=== PATIENT | female | born 1995 | race Caucasian/White ===

== ENCOUNTER 2018-10-18 12:15 | Emergency (ER) | payer OTHER, BC ==
--- NOTE | 2018-10-18 12:26 | ER Report ---
History and Physical Time Seen By MD: 12:23 HPI/ROS CHIEF COMPLAINT: Abdominal pain HISTORY OF PRESENT ILLNESS: This is a 23-year-old female who presents to the emergency department for abdominal pain. Patient was seen earlier this week by her primary care provider for abdominal pain, concern about a urinary tract infection, as well as BV, according to the patient the urine was negative however with her symptoms of frequency, urgency and dysuria they put her on a three-day course of Bactrim, they sent the urine out for culture, the called her back with negative culture results, she did finish antibiotics. She also had a pelvic exam which was unremarkable. Patient states that the lower abdomen is still painful. Patient also states that she can't remember the last time she had a bowel movement she been so focused on her urinary symptoms. She denies fevers or chills. Mild bilateral flank pain, left greater than right. Severe nausea w ith one episode of vomiting this morning. No chest pain or shortness of breath. No rashes. No headaches. No other complaints. REVIEW OF SYSTEMS: Constitutional: No fever, no chills. Eyes: No discharge. ENT: No sore throat. Cardiovascular: No chest pain, no palpitations. Respiratory: No cough, no shortness of breath. Gastrointestinal: As above. Genitourinary: As above. Musculoskeletal: As above. Skin: No rashes. Neurological: No headache. Allergies: Coded Allergies: No Known Drug Allergies (Unverified , 10/18/18) Home Meds Active Scripts Cephalexin Monohydrate (CEPHALEXIN) 500 Mg Cap, 500 MG PO BID for 7 Days, #14 CAP 0 Refills Prov:JI EDGAR PURIFICATION DIRECTOR- 10/18/18 Reported Medications Ibuprofen (IBUPROFEN) 400 Mg Tablet, 2 TAB PO Q6H, TAB 10/18/18 Phenazopyridine HCl (Azo Urinary Pain Relief) 97.5 Mg Tablet 10/18/18 Past Medical/Surgical History The patient has a past medical and surgical history of anemia, urinary tract infections, depression. Reviewed Nurses Notes: Yes Constitutional Vital Sign - Last 24 Hours 10/18/18 10/18/18 10/18/18 10/18/18 12:15 12:26 12:28 12:29 Temp 98.2 Pulse ??? 119 Resp 16 B/P (MAP) 144/104 (117) 127/98 130/111 (117) Pulse Ox 95 O2 Delivery Room Air 10/18/18 10/18/18 10/18/18 12:30 12:45 13:00 Pulse 112 100 78 B/P (MAP) 127/98 (108) 109/79 (89) Pulse Ox 96 95 94 Physical Exam General Appearance: The patient is alert, has no immediate need for airway protection and no signs of toxicity. Eyes: Pupils equal and round no pallor or injection. ENT, Mouth: Mucous membranes are moist. Respiratory: There are no retractions, lungs are clear to auscultation. Cardiovascular: Regular rate and rhythm. No murmurs, clicks or rubs. Gastrointestinal: Abdomen is soft, increased firmness with palpation to the left lower quadrant. Tenderness bilateral lower quadrants extending into the bilateral upper quadrants with palpation. No rebound tenderness. No masses, no abdominal bruits. Hypoactive bowel sounds in all quadrants. Neurological: Alert and oriented 4. Moving all extremities. Following all commands. No focal neuro deficits. Skin: Warm and dry, no rashes. Musculoskeletal: Neck is supple non tender. Bilateral CVA tenderness, left greater than right. Extremities are nontender, nonswollen and have full range of motion. DIFFERENTIAL DIAGNOSIS: After history and physical exam differential diagnosis was considered for abdominal pain in a female including but not limited to ovarian cyst, pelvic inflammatory disease, ovarian torsion, urinary tract infection, and appendicitis. Medical Decision Making Data Points Result Diagram: 10/18/18 1257 10/18/18 1257 Laboratory Hematology Test 10/18/18 12:22 10/18/18 12:57 Urine Color Alva Urine Clarity Clear Urine pH 5.0 pH (4.8-9.5) Urine Specific [place] 1.023 Urine Protein Negative mg/dL (NEGATIVE) Urine Glucose (UA) Negative mg/dL (NEGATIVE) Urine Ketones Negative mg/dL (NEGATIVE) Urine Blood Negative (NEGATIVE) Urine Nitrite Positive (NEGATIVE) Urine Bilirubin Negative (NEGATIVE) Urine Urobilinogen 4.0 mg/dL (0.2-1.9) Urine Leukocyte Esterase Negative (NEGATIVE) Urine RBC <1 /HPF (0-2/HPF) Urine WBC <1 /HPF (0-5/HPF) Urine Squamous Epithelial Cells Many /LPF (</=FEW) Urine Bacteria Few /HPF (NONE-FEW) Urine Mucus Few /HPF (NONE-FEW) Red Blood Count 5.82 M/uL (4.17-5.56) Mean Corpuscular Volume 82.8 fL (80.0-96.0) Mean Corpuscular Hemoglobin 28.0 pg (26.0-33.0) Mean Corpuscular Hemoglobin Concent 33.8 g/dL (32.0-36.0) Red Cell Distribution Width 13.5 % (11.5-14.5) Mean Platelet Volume 8.3 fL (7.2-11.1) Neutrophils (%) (Auto) 75.0 % (39.4-72.5) Lymphocytes (%) (Auto) 16.6 % (17.6-49.6) Monocytes (%) (Auto) 6.5 % (4.1-12.4) Eosinophils (%) (Auto) 1.3 % (0.4-6.7) Basophils (%) (Auto) 0.6 % (0.3-1.4) Nucleated RBC Relative Count (auto) 0.0 /100WBC Neutrophils # (Auto) 4.7 K/uL (2.0-7.4) Lymphocytes # (Auto) 1.1 K/uL (1.3-3.6) Monocytes # (Auto) 0.4 K/uL (0.3-1.0) Eosinophils # (Auto) 0.1 K/uL (0.0-0.5) Basophils # (Auto) 0.0 K/uL (0.0-0.1) Nucleated RBC Absolute Count (auto) 0.00 K/uL Sodium Level 139 mmol/L (137-145) Potassium Level 4.4 mmol/L (3.5-5.0) Chloride Level 104 mmol/L (98-107) Carbon Dioxide Level 24 mmol/L (22-31) Blood Urea Nitrogen 17 mg/dl (7-18) Creatinine 0.90 mg/dl (0.52-1.04) Glomerular Filtration Rate Calc > 60.0 Random Glucose 103 mg/dl (75-110) Calcium Level 10.2 mg/dl (8.4-10.2) Total Bilirubin 1.0 mg/dl (0.2-1.3) Aspartate Amino Transf (AST/SGOT) 24 U/L (0-35) Alanine Aminotransferase (ALT/SGPT) 19 U/L (0-56) Alkaline Phosphatase 97 U/L (0-126) Total Protein 8.8 g/dl (6.3-8.2) Albumin 5.0 g/dl (3.5-5.0) Human Chorionic Gonadotropin, Qual Negative (NEGATIVE) Chemistry Test 10/18/18 12:22 10/18/18 12:57 Urine Color Alva Urine Clarity Clear Urine pH 5.0 pH (4.8-9.5) Urine Specific [place] 1.023 Urine Protein Negative mg/dL (NEGATIVE) Urine Glucose (UA) Negative mg/dL (NEGATIVE) Urine Ketones Negative mg/dL (NEGATIVE) Urine Blood Negative (NEGATIVE) Urine Nitrite Positive (NEGATIVE) Urine Bilirubin Negative (NEGATIVE) Urine Urobilinogen 4.0 mg/dL (0.2-1.9) Urine Leukocyte Esterase Negative (NEGATIVE) Urine RBC <1 /HPF (0-2/HPF) Urine WBC <1 /HPF (0-5/HPF) Urine Squamous Epithelial Cells Many /LPF (</=FEW) Urine Bacteria Few /HPF (NONE-FEW) Urine Mucus Few /HPF (NONE-FEW) White Blood Count 6.3 k/uL (4.5-11.0) Red Blood Count 5.82 M/uL (4.17-5.56) Hemoglobin 16.3 g/dL (12.0-16.0) Hematocrit 48.2 % (34.0-47.0) Mean Corpuscular Volume 82.8 fL (80.0-96.0) Mean Corpuscular Hemoglobin 28.0 pg (26.0-33.0) Mean Corpuscular Hemoglobin Concent 33.8 g/dL (32.0-36.0) Red Cell Distribution Width 13.5 % (11.5-14.5) Platelet Count 267 K/uL (150-450) Mean Platelet Volume 8.3 fL (7.2-11.1) Neutrophils (%) (Auto) 75.0 % (39.4-72.5) Lymphocytes (%) (Auto) 16.6 % (17.6-49.6) Monocytes (%) (Auto) 6.5 % (4.1-12.4) Eosinophils (%) (Auto) 1.3 % (0.4-6.7) Basophils (%) (Auto) 0.6 % (0.3-1.4) Nucleated RBC Relative Count (auto) 0.0 /100WBC Neutrophils # (Auto) 4.7 K/uL (2.0-7.4) Lymphocytes # (Auto) 1.1 K/uL (1.3-3.6) Monocytes # (Auto) 0.4 K/uL (0.3-1.0) Eosinophils # (Auto) 0.1 K/uL (0.0-0.5) Basophils # (Auto) 0.0 K/uL (0.0-0.1) Nucleated RBC Absolute Count (auto) 0.00 K/uL Glomerular Filtration Rate Calc > 60.0 Calcium Level 10.2 mg/dl (8.4-10.2) Total Bilirubin 1.0 mg/dl (0.2-1.3) Aspartate Amino Transf (AST/SGOT) 24 U/L (0-35) Alanine Aminotransferase (ALT/SGPT) 19 U/L (0-56) Alkaline Phosphatase 97 U/L (0-126) Total Protein 8.8 g/dl (6.3-8.2) Albumin 5.0 g/dl (3.5-5.0) Human Chorionic Gonadotropin, Qual Negative (NEGATIVE) Urinalysis Test 10/18/18 12:22 Urine Color Alva Urine Clarity Clear Urine pH 5.0 pH (4.8-9.5) Urine Specific [place] 1.023 Urine Protein Negative mg/dL (NEGATIVE) Urine Glucose (UA) Negative mg/dL (NEGATIVE) Urine Ketones Negative mg/dL (NEGATIVE) Urine Blood Negative (NEGATIVE) Urine Nitrite Positive (NEGATIVE) Urine Bilirubin Negative (NEGATIVE) Urine Urobilinogen 4.0 mg/dL (0.2-1.9) Urine Leukocyte Esterase Negative (NEGATIVE) Urine RBC <1 /HPF (0-2/HPF) Urine WBC <1 /HPF (0-5/HPF) Urine Squamous Epithelial Cells Many /LPF (</=FEW) Urine Bacteria Few /HPF (NONE-FEW) Urine Mucus Few /HPF (NONE-FEW) EKG/Imaging Imaging Location: [facility] [place] Patient: Tatiana Montelongo : 1995 Visit/Account:[id number] Date of Sevice: 10/18/2018 EXAMINATION: CT abdomen and pelvis with IV contrast HISTORY: Lower abdominal pain. TECHNIQUE: Axial CT images of the abdomen and pelvis were obtained with IV contrast, with coronal and sagittal 2D reconstructed images. One of the following dose optimization techniques was utilized in the performance of this exam: Automated exposure control; adjustment of the mA and/or kV according to the patient's size; or use of an iterative recon struction technique. Specific details can be referenced in the facility's radiology CT exam operational policy. Contrast: 75 mL of IV Isovue-370. COMPARISON: None. FINDINGS: Liver: Negative. Gallbladder and bile ducts: Negative. Spleen: Negative. Pancreas: Negative. Adrenal glands: Negative. Kidneys: Negative. No hydronephrosis or urinary calculi. Bowel and peritoneum: The small bowel and colon are normal in caliber, without evidence of obstruction or any focal inflammatory process. Normal appendix. No free fluid or free intraperitoneal air. Pelvic structures: The uterus is anteverted in position, with an IUD in place along the central uterus. Adnexal structures are grossly unremarkable by CT. No large adnexal cyst in the pelvis. Lymph node assessment: Negative. Vessels: Negative. Musculoskeletal: Negative. Body wall: Negative. Lung bases: Negative. IMPRESSION: 1. No CT evidence of acute intra-abdominal pathology. No specific source of abdominal pain is identified. 2. Normal appendix. 3. IUD in place along the central uterus. Report Dictated By: Jonathan Cartagena MD at 10/18/2018 1:55 PM Report E-Signed By: Jonathan Cartagena MD at 10/18/2018 2:01 PM WSN:[facility] ED Course/Re-evaluation Clinical Indication for ER IV: Hydration, IV Access ED Course The patient was admitted to a room. A history and physical obtained. Differential diagnoses were considered. An IV was started. A CBC, CMP and UA were collected. 4 mg IV Zofran were given. 4 mg IV morphine. 1 L normal saline bolus.CBC showing hemoglobin and hematocrit 16.3 and 48.2, negative hCG, unremarkable chemistry, urine with a specific gravity of 1.023, positive nitrites. High urinobilirubin. A CT of the abdomen and pelvis negative for any acute intra-abdominal pathology. I reviewed the lab studies and imaging results with the patient. I did tell patient that she likely has a continuation of a urinary tract infection that could lead to pyelonephritis if untreated. Patient was given 1 g of IV Rocephin. Antibiotics were changed to Keflex for 7 days. I did advise that she follows up with her primary care provider early next week for reevaluation, return to the ER for any other concerns or worsening symptoms. She chest understanding and was discharged home. She was in agreement with this plan of care. Decision to Disposition Date: Oct 18, 2018 Decision to Disposition Time: 14:43 Depart Departure Latest Vital Signs Vital Signs Date Time Temp Pulse Resp B/P (MAP) Pulse Ox O2 Delivery O2 Flow Rate FiO2 10/18/18 13:00 78 109/79 (89) 94 10/18/18 12:28 98.2 16 Room Air Impression: Primary Impression: Urinary tract infection Condition: Improved Disposition: HOME OR SELF-CARE New Scripts Cephalexin Monohydrate (CEPHALEXIN) 500 Mg Cap 500 MG PO BID for 7 Days, #14 CAP 0 Refills Prov: JI EDGAR 10/18/18 Patient Instructions: Kidney Infection (ED), Urinary Tract Infection in Women (DC) Additional Instructions: Your urine is still concerning for an infection. We gave you 1 dose of IV antibiotics. I have placed you on Keflex 500mg twice a day for 7 days. Take 600mg Ibuprofen every 6-8 hours as needed for pain. Take 325-650mg Tylenol as needed for pain. Please follow up with your PCP within 5 days for reevaluation. We have also given you one dose of Diflucan. Get plenty of rest. Drink plenty of water. Return to the ED for any other concerns or worsening symptoms. Problem Qualifiers Primary Impression: Urinary tract infection Urinary tract infection type: site unspecified Hematuria presence: without hematuria Qualified Codes: N39.0 - Urinary tract infection, site not specified JI EDGAR Oct 18, 2018 12:26
[2018-10-18] MEDS ORDERED: ONDANSETRON 4 MG/2 ML VIAL IVP ONE (12:30)
[2018-10-18] MEDS ORDERED: NS(*) 0.9% 1000 ML BAG 1,000 ML IV ONE (12:30)
[2018-10-18] MEDS ORDERED: IBUP400T13 PO (12:35)
[2018-10-18] MEDS ORDERED: PHEN97.53 (12:35)
[2018-10-18 13:00] VITALS: BP 109/79
[2018-10-18] MEDS ORDERED: MORPHINE 4 MG/ML SDV IVP ONE (13:10)
[2018-10-18 13:12] LABS: PLATELET COUNT, AUTOMATED 267 K/uL (150-450)
[2018-10-18] MEDS ORDERED: IOPAMIDOL 76% 100 ML INFUS BTL 100 ML ONE (13:37)
--- NOTE | 2018-10-18 14:05 | RADIOLOGY IMAGING REPORT ---
FACILITY: [facility] [place] PATIENT NAME: Tatiana Montelongo : 1995 MR: [id number] V: [id number] EXAM DATE: ORDERING PHYSICIAN: JI EDGAR TECHNOLOGIST: Location: [facility] Patient: Tatiana Montelongo : 1995 Visit/Account:[id number] Date of Sevice: 10/18/2018 EXAMINATION: CT abdomen and pelvis with IV contrast HISTORY: Lower abdominal pain. TECHNIQUE: Axial CT images of the abdomen and pelvis were obtained with IV contrast, with coronal a nd sagittal 2D reconstructed images. One of the following dose optimization techniques was utilized in the performance of this exam: Autom ated exposure control; adjustment of the mA and/or kV according to the patient's size; or use of an i terative reconstruction technique. Specific details can be referenced in the facility's radiology C T exam operational policy. Contrast: 75 mL of IV Isovue-370. COMPARISON: None. FINDINGS: Liver: Negative. Gallbladder and bile ducts: Negative. Spleen: Negative. Pancreas: Negative. Adrenal glands: Negative. Kidneys: Negative. No hydronephrosis or urinary calculi. Bowel and peritoneum: The small bowel and colon are normal in caliber, without evidence of obstructi on or any focal inflammatory process. Normal appendix. No free fluid or free intraperitoneal air. Pelvic structures: The uterus is anteverted in position, with an IUD in place along the central u terus. Adnexal structures are grossly unremarkable by CT. No large adnexal cyst in the pelvis. Lymph node assessment: Negative. Vessels: Negative. Musculoskeletal: Negative. Body wall: Negative. Lung bases: Negative. IMPRESSION: 1. No CT evidence of acute intra-abdominal pathology. No specific source of abdominal pain is ident ified. 2. Normal appendix. 3. IUD in place along the central uterus. Report Dictated By: Jonathan Cartagena MD at 10/18/2018 1:55 PM Report E-Signed By: Jonathan Cartagena MD at 10/18/2018 2:01 PM WSN:[email or web address]
[2018-10-18] MEDS ORDERED: cefTRIAXone 1 GM VIAL IVP ONE (14:15)
[2018-10-18] MEDS ORDERED: FLUCONAZOLE 150 MG TAB PO ONE (14:15)
[2018-10-18] MEDS ORDERED: KETOROLAC 30 MG/ML VIAL IVP ONE (14:15)
[2018-10-18] MEDS ORDERED: CEPH500C24 PO (14:39)
== END 2018-10-18 14:45 | disposition home or self-care (01) ==
LOC: ER 12:32
DX: N39.0 Urinary tract infection, site not specified (principal)
CPT/HCPCS: 74177; 81001; 84703; 85025; 96361; 96374; 96375; 99284; J0696; J1885; J2270; J2405; J7030; Q9967; 82040; 82247; 82310; 82374; 82435; 82565; 82947; 84075; 84132; 84155; 84295; 84450; 84460; 84520